=== PATIENT | female | born 1930 | race Caucasian/White ===

== ENCOUNTER → 2017-09-19 | Outpatient (CLI) | payer OTHER ==
[~2017-09-19] VITALS: Ht 152.4 cm; Wt 63.5 kg
[~2017-09-19] MED LIST: ANTIVERT12.5 MG; ASA81 MG; ATORVASTATIN CA20 MG; CLARITHROMYCIN500 MG PO; COZAAR100 MG; FLONASE16 GM NASAL; GILTUSS TR TAB1 EACH PO; HYZAAR 100-121 UDTAB; LIPO-FLAVONOID1 EACH PO; NAMENDA10 MG; NEURONTIN300 MG
== END | disposition home or self-care (01) ==
LOC: OFIC 805 08:30
DX: J01.80 Other acute sinusitis (principal); R05 Cough; H90.3 Sensorineural hearing loss, bilateral; R42 Dizziness and giddiness

== ENCOUNTER 2017-11-28 13:20 | Outpatient (CLI) | payer OTHER | END 2017-11-28 13:37 | disposition home or self-care (01) | LOC: MAMO-SONO 13:20 | DX: Z12.31 Encounter for screening mammogram for malignant neoplasm of breast (principal); Z87.898 Personal history of other specified conditions; C50.919 Malignant neoplasm of unspecified site of unspecified female breast ==

== ENCOUNTER 2017-12-31 13:05 | Outpatient (CLI) | payer OTHER | END 2017-12-31 16:30 | disposition home or self-care (01) | LOC: RAD 501 13:05 | DX: R31.29 Other microscopic hematuria (principal) ==

== ENCOUNTER 2018-02-28 10:02 | Outpatient (CLI) | payer OTHER | END 2018-02-28 15:06 | disposition home or self-care (01) | LOC: RAD 10:02 | DX: M17.11 Unilateral primary osteoarthritis, right knee (principal); M17.12 Unilateral primary osteoarthritis, left knee ==

== ENCOUNTER 2018-03-20 09:36 | Outpatient (CLI) | payer OTHER ==
[~2018-03-20] VITALS: Ht 152.4 cm; Wt 63.5 kg
[2018-03-20] MEDS ORDERED: LIPO-FLAVONOID1 EACH PO (10:15)
== END 2018-03-20 10:05 | disposition home or self-care (01) ==
LOC: OFIC 805 09:36
DX: H90.3 Sensorineural hearing loss, bilateral (principal); J31.0 Chronic rhinitis; R42 Dizziness and giddiness

== ENCOUNTER → 2018-08-06 | Outpatient (CLI) | payer OTHER | END | disposition home or self-care (01) | LOC: NUCLEAR 10:00 | DX: M81.0 Age-related osteoporosis without current pathological fracture (principal) ==

== ENCOUNTER 2018-09-18 09:11 | Outpatient (CLI) | payer OTHER ==
[~2018-09-18] VITALS: Ht 152.4 cm; Wt 63.5 kg
== END 2018-09-18 09:30 | disposition home or self-care (01) ==
LOC: OFIC 805 09:11
DX: D23.20 Other benign neoplasm of skin of unspecified ear and external auricular canal (principal); J31.0 Chronic rhinitis; H90.3 Sensorineural hearing loss, bilateral; H61.23 Impacted cerumen, bilateral

== ENCOUNTER 2018-09-25 10:09 | Outpatient (CLI) | payer OTHER ==
[~2018-09-25] VITALS: Ht 152.4 cm; Wt 63.5 kg
== END 2018-09-25 10:20 | disposition home or self-care (01) ==
LOC: OFIC 805 10:09
DX: D23.20 Other benign neoplasm of skin of unspecified ear and external auricular canal (principal); H90.3 Sensorineural hearing loss, bilateral; G46.4 Cerebellar stroke syndrome

== ENCOUNTER 2019-05-28 08:30 | Outpatient (CLI) | payer OTHER ==
[~2019-05-28] VITALS: Ht 162.6 cm; Wt 63.5 kg
== END 2019-05-28 12:50 | disposition home or self-care (01) ==
LOC: OFIC 805 08:30
DX: D23.21 Other benign neoplasm of skin of right ear and external auricular canal (principal); J31.0 Chronic rhinitis; H90.3 Sensorineural hearing loss, bilateral; H61.21 Impacted cerumen, right ear; G46.4 Cerebellar stroke syndrome